=== PATIENT | male | born 1970 | race African-American/Black ===

== ENCOUNTER 2017-04-28 16:28 | Emergency (ER) | payer OTHER ==
[~2017-04-28] VITALS: Ht 175.3 cm; Wt 96.6 kg
[~2017-04-28 16:28] MED LIST: ANUSOL-HC25 MG RE; BACTRIM DS1 TAB OR; DELZICOL400 MG PO; LOMOTIL2.5 MG PO; METAMUCIL28 % OR; NAPROSYN500 MG PO; NO HOMEMEDS; PREDNISONE10 MG PO; PREDNISONE20 MG PO; PRILOSEC20 MG OR; SULFASALAZIN500 M4 PO; ULTRAM50 MG OR; VIAGRA25 MG PO
[2017-04-28 17:28] VITALS: BP 128/74
== END 2017-04-28 17:25 | disposition home or self-care (01) | DRG 916 ==
LOC: ED 16:28
DX: T78.3XXA Angioneurotic edema, initial encounter (principal); R22.33 Localized swelling, mass and lump, upper limb, bilateral; R22.43 Localized swelling, mass and lump, lower limb, bilateral; Y92.89 Other specified places as the place of occurrence of the external cause

== ENCOUNTER 2019-05-19 | Emergency (ER) | payer OTHER ==
[2019-05-19] MEDS ORDERED: MESALAMINE DR400 MG PO (09:23)
== END 2019-05-19 11:45 | disposition home or self-care (01) | DRG 563 ==
DX: S39.012A Strain of muscle, fascia and tendon of lower back, initial encounter (principal); S29.012A Strain of muscle and tendon of back wall of thorax, initial encounter; X50.0XXA Overexertion from strenuous movement or load, initial encounter

== ENCOUNTER 2019-11-06 11:46 | Emergency (ER) | payer OTHER ==
[~2019-11-06] VITALS: Ht 175.3 cm; Wt 65.0 kg
[~2019-11-06 11:46] MED LIST changes: +MESALAMINE DR400 MG PO
[2019-11-06 12:49] VITALS: BP 126/66
== END 2019-11-06 12:48 | disposition home or self-care (01) | DRG 700 ==
LOC: ED 11:46
DX: Z46.6 Encounter for fitting and adjustment of urinary device (principal)

== ENCOUNTER 2020-02-15 13:32 | Emergency (ER) | payer BC ==
[~2020-02-15] VITALS: Ht 175.3 cm; Wt 59.1 kg
[2020-02-15] MEDS ORDERED: METRONIDAZOLE500 MG PO (14:42)
[2020-02-15] MEDS ORDERED: OXYCODONE20 M1 PO (14:43)
[2020-02-15 14:52] LABS: URINE BILIRUBIN - DIPSTICK NEGATIVE (NEGATIVE); URINE BLOOD DIPSTICK LARGE (NEGATIVE); URINE COLOR YELLOW; URINE GLUCOSE - DIPSTICK NEGATIVE (NEGATIVE); URINE KETONE TRACE mg/dL (NEGATIVE); URINE LEUK ESTERASE NEGATIVE (NEGATIVE); URINE NITRITE - DIPSTICK NEGATIVE (Negative); URINE PH 5.5 (4.5-8.0); URINE PROTEIN - DIPSTICK 100 mg/dL (NEG-TRACE); URINE SPECIFIC GRAVITY >=1.030; URINE UROBILINOGEN - DIPSTICK 0.2 E.U./dL (0.2)
[2020-02-15 15:03] LABS: URINE CALCIUM OXALATE CRYSTALS MANY lpf; URINE WBC 0-2 WBC/hpf (0-5)
[2020-02-15 15:35] VITALS: BP 115/57
== END 2020-02-15 15:35 | disposition home or self-care (01) | DRG 700 ==
LOC: ED 13:32
DX: T83.091A Other mechanical complication of indwelling urethral catheter, initial encounter (principal); Y84.6 Urinary catheterization as the cause of abnormal reaction of the patient, or of later complication, without mention of misadventure at the time of the procedure; Z85.46 Personal history of malignant neoplasm of prostate; Z96.0 Presence of urogenital implants

== ENCOUNTER 2020-12-16 01:27 | Emergency (ER) | payer BC ==
[~2020-12-16] VITALS: Ht 175.3 cm; Wt 68.0 kg
[~2020-12-16 01:27] MED LIST changes: +METRONIDAZOLE500 MG PO; +OXYCODONE20 M1 PO
[2020-12-16 02:47] LABS: HEMATOCRIT 37.9 % (39.0-50.0); HEMOGLOBIN 11.9 g/dl (14.0-18.0); IMMATURE GRANULOCYTES 0.4 % (0.0-5.0); MEAN CELL VOLUME 83.8 fL CALC (80.0-100.0); MEAN CORPUSCULAR HGB 26.3 pG CALC (26.0-32.0); MEAN CORPUSCULAR HGB CONC 31.4 g/dL CAL (32.0-36.0); NEUT# 5.49 thou/uL (1.82-7.42); RED BLOOD COUNT 4.52 mill/uL (4.70-6.10); RED CELL DISTRI WIDTH 15.3 % (11.5-15.5)
[2020-12-16 02:50] LABS: URINE BILIRUBIN - DIPSTICK NEGATIVE (NEGATIVE); URINE BLOOD DIPSTICK NEGATIVE (NEGATIVE); URINE COLOR YELLOW; URINE GLUCOSE - DIPSTICK NEGATIVE (NEGATIVE); URINE KETONE NEGATIVE (NEGATIVE); URINE LEUK ESTERASE NEGATIVE (NEGATIVE); URINE PH 5.5 (4.5-8.0); URINE PROTEIN - DIPSTICK NEGATIVE (NEG-TRACE); URINE SPECIFIC GRAVITY <=1.005; URINE UROBILINOGEN - DIPSTICK 0.2 E.U./dL (0.2)
[2020-12-16 02:52] LABS: URINE NITRITE - DIPSTICK NEGATIVE (Negative)
[2020-12-16 02:59] LABS: ALBUMIN 4.7 g/dL (3.2-5.0); ALKALINE PHOSPHATASE 59 u/l (38-126); BUN 18 mg/dL (9-20); BUN/CREATININE RATIO 20 (12-20 (CALC)); CHLORIDE 108 mmol/l (95-108); CREATININE 0.9 mg/dL (0.7-1.3); ETHYL ALCOHOL 287 mg/dl (0-30); GFR > 60 ML/MIN (>=60 (CALC)); GFR FOR AFR.AMER. > 60 ML/MIN (>=60 (CALC)); SODIUM 143 mmol/l (137-146); TOTAL PROTEIN 8.9 g/dL (6.3-8.2)
[2020-12-16 03:01] LABS: ANION GAP 17 (6-22 (CALC)); BILIRUBIN, TOTAL 0.6 mg/dL (0.0-1.4); CARBON DIOXIDE 22 mmol/l (22-30); SGOT/AST 25 u/l (17-59)
[2020-12-16 03:19] VITALS: BP 112/65
== END 2020-12-16 03:28 | DRG 395 ==
LOC: ED 01:27
PROVIDERS: Family Medicine
DX: K94.01 Colostomy hemorrhage (principal); S30.811A Abrasion of abdominal wall, initial encounter; F10.129 Alcohol abuse with intoxication, unspecified; Y35.813A Legal intervention involving manhandling, suspect injured, initial encounter; Y83.3 Surgical operation with formation of external stoma as the cause of abnormal reaction of the patient, or of later complication, without mention of misadventure at the time of the procedure; Z85.46 Personal history of malignant neoplasm of prostate

== ENCOUNTER 2024-01-04 07:45 | Inpatient (IN) | payer MEDICARE ==
[~2024-01-04] VITALS: Ht 175.3 cm; Wt 62.3 kg
[2024-01-04] VITALS (20 sets, daily range): BP systolic 106–144; BP diastolic 61–88
[2024-01-04] MEDS ORDERED: ONDANSETRON HCl 4 MG/2 ML SDV IV ONE (08:10)
[2024-01-04] MEDS ORDERED: MORPHINE SULFATE 4 MG/ML VIAL IV ONE (08:10)
[2024-01-04] MEDS ORDERED: SODIUM CHLORIDE 0.9% 1,000 ML IV ONE ×2 (08:10→10:20)
[2024-01-04 08:36] LABS: BASO% 0.2 % (0-3); EOS% 1.3 % (0-8); HEMATOCRIT 39.5 % (39.0-50.0); HEMOGLOBIN 12.5 g/dl (14.0-18.0); IMMATURE GRANULOCYTES 0.7 % (0.0-5.0); LYMPH% 8.7 % (15-41); MEAN CELL VOLUME 80.4 fL CALC (80.0-100.0); MEAN CORPUSCULAR HGB 25.5 pG CALC (26.0-32.0); MEAN CORPUSCULAR HGB CONC 31.6 g/dL CAL (32.0-36.0); MONO% 13.1 % (2-13); NEUT# 10.23 thou/uL (1.82-7.42); RED BLOOD COUNT 4.91 mill/uL (4.70-6.10)
[2024-01-04 08:44] LABS: ALBUMIN 4.1 g/dL (3.2-5.0); BILIRUBIN, TOTAL 0.9 mg/dL (0.2-1.3); POTASSIUM 4.3 mmol/l (3.5-5.1); TOTAL PROTEIN 7.9 g/dL (6.3-8.2)
[2024-01-04 08:45] LABS: CREATININE 2.1 mg/dL (0.7-1.3)
[2024-01-04] MEDS ORDERED: MAGNESIUM HYDROXIDE 30 ML UDC PO PRN (10:35)
[2024-01-04] MEDS ORDERED: ACETAMINOPHEN 325 MG/TAB PO PRN (10:35)
[2024-01-04] MEDS ORDERED: SODIUM CHLORIDE 0.9% 1,000 ML IV PRN (10:35)
[2024-01-04 10:47] LABS: URINE BILIRUBIN - DIPSTICK Negative (NEGATIVE); URINE BLOOD DIPSTICK Trace-intact (NEGATIVE); URINE GLUCOSE - DIPSTICK Negative (NEGATIVE); URINE KETONE Negative (NEGATIVE); URINE LEUK ESTERASE Negative (NEGATIVE); URINE NITRITE - DIPSTICK Negative (Negative); URINE PH 5.5 (4.5-8.0); URINE PROTEIN - DIPSTICK 30 mg/dL (NEG-TRACE); URINE UROBILINOGEN - DIPSTICK 0.2 E.U./dL (0.2)
[2024-01-04 10:48] LABS: URINE COLOR Yellow; URINE EPITHELIAL CELLS MODERATE EPI/hpf (0-FEW)
[2024-01-04] MEDS ORDERED: oxyCODONE 5MG/ ACETAMINOPHEN 325MG TAB PO PRN (18:05)
[2024-01-04] MEDS ORDERED: ONDANSETRON HCl 4 MG/2 ML SDV IV PRN (20:15)
[2024-01-04] MEDS ORDERED: methylPREDNISolone Sod Succ 40 MG/ML SDV IV SCH (21:00)
[2024-01-05] VITALS (8 sets, daily range): BP systolic 112–145; BP diastolic 65–76
[2024-01-05 05:18] LABS: HEMATOCRIT 38.8 % (39.0-50.0); MEAN CELL VOLUME 82.2 fL CALC (80.0-100.0); MEAN CORPUSCULAR HGB 25.4 pG CALC (26.0-32.0); MEAN CORPUSCULAR HGB CONC 30.9 g/dL CAL (32.0-36.0); RED BLOOD COUNT 4.72 mill/uL (4.70-6.10)
[2024-01-05 05:28] LABS: ALBUMIN 3.8 g/dL (3.2-5.0); BILIRUBIN, TOTAL 0.7 mg/dL (0.2-1.3); MAGNESIUM 2.3 mg/dL (1.6-2.3); TOTAL PROTEIN 7.3 g/dL (6.3-8.2)
[2024-01-05 05:41] LABS: CREATININE 1.1 mg/dL (0.7-1.3)
[2024-01-06 00:16] VITALS: BP 123/65
[2024-01-06 03:56] VITALS: BP 133/72
[2024-01-06 05:08] LABS: ALBUMIN 3.8 g/dL (3.2-5.0); CREATININE 0.9 mg/dL (0.7-1.3); MAGNESIUM 2.2 mg/dL (1.6-2.3); POTASSIUM 4.8 mmol/l (3.5-5.1); TOTAL PROTEIN 7.1 g/dL (6.3-8.2)
[2024-01-06 05:11] LABS: BASO% 0.1 % (0-3); HEMATOCRIT 38.3 % (39.0-50.0); HEMOGLOBIN 11.7 g/dl (14.0-18.0); MEAN CELL VOLUME 83.8 fL CALC (80.0-100.0); MEAN CORPUSCULAR HGB 25.6 pG CALC (26.0-32.0); MEAN CORPUSCULAR HGB CONC 30.5 g/dL CAL (32.0-36.0); MONO% 8.1 % (2-13); NEUT# 7.49 thou/uL (1.82-7.42); NEUT% 74.9 % (42-76); RED BLOOD COUNT 4.57 mill/uL (4.70-6.10); RED CELL DISTRI WIDTH 14.1 % (11.5-15.5)
[2024-01-06 05:14] LABS: IMMATURE GRANULOCYTES 6.9 % (0.0-5.0)
[2024-01-06 05:15] LABS: BILIRUBIN, TOTAL 0.4 mg/dL (0.2-1.3)
[2024-01-06 07:15] VITALS: BP 114/66
[2024-01-06 10:39] VITALS: BP 124/72
[2024-01-06] MEDS ORDERED: PREDNISONE20 MG PO (12:31)
== END 2024-01-06 13:44 | disposition home or self-care (01) | DRG 386 ==
LOC: ED 07:45 → ED-I 10:10 → ED 10:34 → MS2 11:01
PROVIDERS: Family Medicine; Nurse Practitioner Family; ADMIT Internal Medicine; ATTEND Internal Medicine
DX: K51.911 Ulcerative colitis, unspecified with rectal bleeding (principal); N17.9 Acute kidney failure, unspecified; E86.0 Dehydration; Z85.46 Personal history of malignant neoplasm of prostate; Z79.899 Other long term (current) drug therapy; Z90.79 Acquired absence of other genital organ(s); Z87.74 Personal history of (corrected) congenital malformations of heart and circulatory system; Z98.890 Other specified postprocedural states
CPT/HCPCS: Q9967

== ENCOUNTER 2024-05-11 18:17 | Emergency (ER) | payer MEDICARE ==
[~2024-05-11] VITALS: Ht 175.3 cm; Wt 77.0 kg
[2024-05-11] MEDS ORDERED: AMOX/K CLAV875 M1 PO (18:47)
[2024-05-11 19:00] VITALS: BP 132/78
== END 2024-05-11 19:16 | disposition home or self-care (01) ==
LOC: ED 18:17
PROC: 0HQFXZZ Repair Right Hand Skin, External Approach (ICD-10-PCS; principal; 2024-05-11)
DX: S61.254A Open bite of right ring finger without damage to nail, initial encounter (principal); W54.0XXA Bitten by dog, initial encounter; Y92.009 Unspecified place in unspecified non-institutional (private) residence as the place of occurrence of the external cause